=== PATIENT | male | born 1980 | race Caucasian/White ===

== ENCOUNTER 2020-02-18 15:26 | Emergency (ER) | payer BC ==
[~2020-02-18] VITALS: Ht 182.9 cm; Wt 91.6 kg
[~2020-02-18 15:26] MED LIST: NAPROSYN500 MG PO; VYVANSE70 MG PO
[2020-02-18] MEDS ORDERED: BYSTOLIC10 MG PO (15:31)
[2020-02-18 16:56] LABS: ABSOLUTE NEUTROPHILS 8.4 thou/uL (1.4-8.2); BASOPHILS 0.2 % (0.0-2.0); EOSINOPHILS 1.7 % (0.0-3.0); HEMATOCRIT 43.1 % (42.0-52.0); HEMOGLOBIN 14.7 gm/dL (14.0-18.0); LYMPHOCYTES 10.7 % (24.0-44.0); MCH 29.9 pg (26.0-34.0); MCHC 34.2 g/dL (28.0-37.0); MCV 87.3 fL (80.0-100.0); MONOCYTES 7.4 % (1.0-8.0); PLATELET COUNT 269 thou/uL (150-400); RBC 4.93 mil/uL (4.50-6.00); RDW 13.9 % (10.5-14.5); WBC 10.5 thou/uL (4.0-11.0)
[2020-02-18 17:03] LABS: CALCIUM 9.3 mg/dL (8.5-10.1)
[2020-02-18 17:09] LABS: ALBUMIN 3.7 g/dL (3.4-5.0); TOTAL BILIRUBIN 0.8 mg/dL (0.2-1.0); TOTAL PROTEIN 8.3 g/dL (6.4-8.2)
[2020-02-18] MEDS ORDERED: NORCO 5-325 TA1 EAC2 PO (18:51)
[2020-02-18] MEDS ORDERED: AUGMENTIN 875-1 EACH PO (18:51)
[2020-02-18 19:15] VITALS: BP 129/83
== END 2020-02-18 19:15 | disposition home or self-care (01) ==
LOC: ER 15:26
PROVIDERS: Physician Assistant
DX: L03.011 Cellulitis of right finger (principal); Z79.899 Other long term (current) drug therapy